=== PATIENT | male | born 1985 | race Two or more races ===

== ENCOUNTER 2025-01-28 09:55 | Emergency (ER) | payer OTHER ==
[~2025-01-28] VITALS: Ht 172.7 cm; Wt 95.3 kg
[~2025-01-28 09:55] MED LIST: ACETAMINOPHEN650 M2 PO; CLONAZEPAM1 M1; MEDROLPACK PO; NORFLEX100MG PO; SIMVASTATIN5 MG
[2025-01-28] MEDS ORDERED: ACETAMINOPHEN 500 MG GEL..CAP PO STA (10:22)
[2025-01-28] MEDS ORDERED: ORPHENADRINE CITRATE 30 MG/ML AMPUL IM STA (10:22)
[2025-01-28] MEDS ORDERED: METAXALONE800 MG PO (12:53)
[2025-01-28] MEDS ORDERED: TYLENOL ARTHRI650 MG PO (12:53)
[2025-01-28] MEDS ORDERED: MEDROLPACK PO ×2 (12:54→12:55)
== END 2025-01-28 13:34 | disposition home or self-care (01) ==
LOC: ER 09:57
DX: S39.012A Strain of muscle, fascia and tendon of lower back, initial encounter (principal); X58.XXXA Exposure to other specified factors, initial encounter; Y93.89 Activity, other specified; Y92.89 Other specified places as the place of occurrence of the external cause; Y99.9 Unspecified external cause status; M72.2 Plantar fascial fibromatosis; Z88.6 Allergy status to analgesic agent